=== PATIENT | male | born 1980 | race Caucasian/White ===

== ENCOUNTER 2021-07-07 10:23 | Outpatient (CLI) | payer OTHER, SELFPAY ==
[2021-07-07 10:30] VITALS: BP 144/77; PULSE 63; RESP 18; TEMP 36.8; O2SAT 98; BMI 32.8
[2021-07-07 11:10] VITALS: BP 111/70; PULSE 66; RESP 18; TEMP 36.9; O2SAT 98
[2021-07-07 12:00] VITALS: BP 110/68; PULSE 68; RESP 17; TEMP 36.9
== END 2021-07-07 10:24 | disposition home or self-care (01) ==
PROVIDERS: Visit Provider Nurse Practitioner
DX: U07.1 COVID-19 (principal)
CPT/HCPCS: 96365

== ENCOUNTER 2021-10-06 10:15 | Outpatient (CLI) | payer OTHER, SELFPAY ==
--- NOTE | 2021-10-06 10:30 | CT_ITS ---
WS: [id number] CT FACIAL BONES with contrast. HISTORY: CHEEK ABSCESS TECHNIQUE: Images obtained from the supraorbital location through the mandible. Soft tissue and bone windows are reviewed. Coronal and sagittal reformats have also been submitted. DLP: 572.[address] scans at [facility] use at least one of these dose optimization techniques: automated e xposure control; mA and/or kV adjustment per patient size (includes targeted exams where dose is matc hed to clinical indication); or iterative reconstruction. COMPARISON: None available. Contrast: Omnipaque 300; 95 mL IV. There is mild soft tissue inflammation and induration centered over the LEFT mandible and maxilla. Th ere are a few small foci of air centered along the LEFT maxillary and mandibular bodies. Focal area o f edema increased enhancement over the LEFT maxilla. No focal area of abscess. There may be a very ti ny subperiosteal collection measuring 7 x 3 mm just lateral to the molars but this is very small and questionable. There is no well formed abscess. There is significant artifact obscuring soft tissue de tail from the patient's dental amalgam. Moderate mucoperiosteal thickening throughout the maxillary sinuses. Orbits and globes are negative. The retrobulbar fat is normal. CT/CT facial bones w con [id number] IMPRESSION: 1. No well formed abscess in the soft tissues over the LEFT facial bones. 2. There is soft tissue induration and cellulitis centered over the LEFT maxil la and mandible but greatest at the maxilla. Questionable tiny, 7 x 3 mm subper iosteal abscess lateral to the LEFT maxillary molars. There are also a few foci of air consistent with ongoing infectious process. 3. Negative orbits and globes.
[2021-10-06] MEDS: iohexol 300 mg/mL 100 mL Btl IV (10:52)
== END 2021-10-06 10:16 | disposition home or self-care (01) ==
LOC: RAD 10:16
PROVIDERS: Visit Provider Nurse Practitioner Family
DX: L02.01 Cutaneous abscess of face (principal); K12.2 Cellulitis and abscess of mouth
CPT/HCPCS: 70487

== ENCOUNTER 2022-02-16 09:07 | Outpatient (CLI) | payer OTHER, SELFPAY ==
[2022-02-16 09:28] LABS: D Dimer <= 0.27 ug/mIFEU (0-0.59)
== END 2022-02-16 09:08 | disposition home or self-care (01) ==
LOC: LAB 09:09
PROVIDERS: Visit Provider Family Medicine
DX: R05.9 Cough, unspecified (principal); U07.1 COVID-19; R07.9 Chest pain, unspecified
CPT/HCPCS: 85378